=== PATIENT | female | born 1965 | race Caucasian/White ===

== ENCOUNTER → 2019-05-06 | Outpatient (CLI) | payer BC, MEDICARE ==
[~2019-05-06] MED LIST: ABILIFY30 MG PO; CARTIA XT240 MG PO; CITRACAL + D CA1 TAB PO; CORDARONE200 MG/TAB PO; CRESTOR 10MG10 MG PO; ELIQUIS 5MG PO; JANUMET 500 MG-1 TA1 PO; TOPROL XL 50MG50 MG PO; ZOLOFT 100MG100 MG PO
== END ==
LOC: LIGHT 12:55
DX: E88.81 Metabolic syndrome and other insulin resistance (principal); E11.65 Type 2 diabetes mellitus with hyperglycemia; G47.33 Obstructive sleep apnea (adult) (pediatric); E66.01 Morbid (severe) obesity due to excess calories; Z68.43 Body mass index [BMI] 50.0-59.9, adult; Z71.3 Dietary counseling and surveillance

== ENCOUNTER → 2019-05-06 | Outpatient (CLI) | payer BC, MEDICARE | LOC: LIGHT 13:03 | DX: E88.81 Metabolic syndrome and other insulin resistance (principal); E11.65 Type 2 diabetes mellitus with hyperglycemia; G47.33 Obstructive sleep apnea (adult) (pediatric); E66.01 Morbid (severe) obesity due to excess calories; Z68.43 Body mass index [BMI] 50.0-59.9, adult; Z71.3 Dietary counseling and surveillance ==

== ENCOUNTER → 2019-12-18 | Outpatient (CLI) | payer BC, MEDICARE ==
[~2019-12-18] VITALS: Ht 168.9 cm; Wt 137.2 kg
[~2019-12-18] MED LIST changes: +TOPROL XL 25MG25 MG PO; -TOPROL XL 50MG50 MG PO
[2019-12-18 10:00] VITALS: BP 130/86; PULSE 76
== END ==
LOC: LIGHT 09-11 11:07
DX: E66.01 Morbid (severe) obesity due to excess calories (principal); Z68.42 Body mass index [BMI] 45.0-49.9, adult; E88.81 Metabolic syndrome and other insulin resistance; E11.9 Type 2 diabetes mellitus without complications; G47.30 Sleep apnea, unspecified
CPT/HCPCS: G0463

== ENCOUNTER → 2020-02-12 | Outpatient (CLI) | payer BC, MEDICARE ==
[~2020-02-12] VITALS: Ht 168.9 cm; Wt 135.4 kg
[2020-02-12 10:09] VITALS: BP 112/66; PULSE 60
== END ==
LOC: LIGHT 10:01
DX: E66.01 Morbid (severe) obesity due to excess calories (principal); Z68.42 Body mass index [BMI] 45.0-49.9, adult; E88.81 Metabolic syndrome and other insulin resistance; E11.9 Type 2 diabetes mellitus without complications; G47.30 Sleep apnea, unspecified
CPT/HCPCS: G0463